=== PATIENT | male | born 1950 | race Caucasian/White ===

== ENCOUNTER 2023-06-12 11:15 | Outpatient (RCR) | payer MEDICARE, BC, SELFPAY ==
--- NOTE | 2023-03-14 15:58 | PT.OPEX ---
PT [place] Outpatient Eval INITIAL EVAL REQUIRES SIGNATURE PT [facility] Outpatient Eval Start: 03/14/23 07:44 Freq: Status: Active Protocol: Document 03/14/23 12:33 JUSTINO (Rec: 03/14/23 15:55 JUSTINO [id number]) E-signed By Favio Vidal DPT Physical Therapy Outpatient Evaluation Insurance Information Recert Due Date 06/07/23 Insurance Name Medicare B,Blue Cross/Blue Shield Medical Diagnosis R shoulder tendonitis Treating Diagnosis R shoulder pain muscle weakness Referring MD Abiel Mcclelland Subjective Subjective kristan comes into clinic dealing with R shoulder pain for the past 4-5 months now. Does think it has gotten better since seeing his primary. First noticed it when he was in [place] where he just noticed the pain one day. Does realize he has a hard time lifting the arm overhead, vertical chest press , or performing plank. HE is an avid gym goer so wants to get back to doing these things . Aside from the gym he notices reaching overhead or away from the body causes increased pain. Sleeping was an issue but has gotten alot better. Pain Comments 0-6 with planks or reaching over head Current Work Status Retired Objective Other/Pertinent Objective SHOULDER AROM WNL on L Flexion: R 125 before pain Abduction: R 130 before pain Internal Rotation: R T9 T4 L External Rotation: R 61 NECK/SHOULDER MMT: Shoulder shrug: R 5/5 L 5/5 Shoulder flexion: R 4/5 L 4/5 Shoulder abduction: R4 /5 L 4/ 5 Shoulder External Rotation: R5 /5 L5 /5 Shoulder Internal Rotation: R 5/5 L5 /5 Elbow flexion: R4 /5 L5 /5 Elbow extension R 5/5 L 5/5 SPECIAL TEST Shoulder impingement Anthony Test: - Neer Test: + R Elsi Test: - Horizontal Adduction Test:- Painful arc 60-120 scaption:+ R Rotator cuff tendonitis Speeds test(biceps): + B Yergasons test(biceps-arm at side elbow flexed): - Empty can(Supra): - Lift off test (subscap):- JOINT MOBILITY/PALPATION increased upper trap tightness long head biceps tenderness with palpation TX: education on HEP and gym routine-how to progress and manage bicep curl with extra focus on supination #8 x 15 banded scaption yellow tb x 12 jordan hrz abd 2x 15 Assessment Assessment/Impression .assess Pt is a 72 yr old male who presents with concerns of R shoulder pain. Patient also has notable objective findings including limited ROM, impaired shoulder stability, decreased strength also likely contributing to the problem. Patient is a good candidate for skilled therapy to target deficits described above. Skilled PT intervention is necessary for use of therapeutic exercise manual therapy, neuromuscular re- education, and therapeutic activity. Functional impairments include difficulty with: reaching lifting planks . See appropriate sections of PT eval for complete list of goals and POC. D/C plan and criteria is for pt to achieve the goals as listed below or until max rehab potential is met. Pt was agreeable with plan of care and goals established Plan of Care Rehabilitation Potential Good Physical Therapy Goals STG Patient will demonstrate/ report ability to reach to 130 -140 degrees shoulder flexion and abduction with pain level <1/10, to allow for puff ironer, hygiene, work within 4 weeks Pt will be able to demonstrate or report ability to perform 30 sec modified plank without pain within 4 weeks Pt will be able to demonstrate / report ability to lift #5-10 from counter height to overhead without pain within 4weeks, for household and work activity. LTG Patient will demonstrate/ report ability to reach to 150 degrees shoulder flexion and abduction with pain level <1/ 10, to allow for puff ironer, hygiene, work within 8 weeks Pt will be able to demonstrate or report ability to perform 30 sec plank without pain within 8 weeks Pt will be able to demonstrate / report ability to lift #15 from counter height to overhead without pain within 8weeks, for household and work activity. Coordination/Communication With Referral Source Treatment Plan/Direct Interventions Joint Mobilization,Manual Therapy,Neuromuscular Re-ed, Self-Care/Home Management, Therapeutic Activities, Therapeutic Exercises Frequency/Duration 1-2 visits a week for 6-12 weeks Patient Will Be Discharged From Therapy Completion of LTG(s), Independent w/HEP, Independently Progressing Evaluation Billing Untimed Code Treatment Minutes 27 Complexity Low Certification Information Initial Certification Date 03/14/23 Ending Certification Date 06/07/23 Physician Comment/Change : Physician NPI Number #
== END 2023-09-03 13:35 | disposition home or self-care (01) ==
PROVIDERS: PCP Family Medicine; Visit Provider Orthopaedic Surgery
DX: M25.511 Pain in right shoulder (principal); M75.81 Other shoulder lesions, right shoulder; Z51.89 Encounter for other specified aftercare
CPT/HCPCS: 97110; 97140; 97161; 97535

== ENCOUNTER 2024-02-13 08:24 | Outpatient (CLI) | payer MEDICARE, BC, SELFPAY ==
--- OUTSIDE RECORDS SUMMARY | 2024-02-16 07:51 | XMS_ITS | Clinical Summary ---
Author Name Unknown Organization [facility] Address [place], [place] [address] Care Team Providers Care Elevator Operator Freight Name Role Phone Nik Navarro MD Primary Care Provider [phone] Allergies No known active allergies Medications Medication Sig Dispensed Refills Start Date End Date Status losartan (COZAAR) 50 mg tablet Take 1 tablet by mouth once daily. 0 03/03/2015 Active triamterene-hydrochlor othiazide, 37.5-25 mg, (MAXZIDE-25) 37.5-25 mg tablet 01/05/2016 Active Active Problems Problem Noted Date Diagnosed Date HTN (hypertension) 01/31/2016 Social History Tobacco Use Types Packs/Day Years Used Date Smoking Tobacco: Former Cigarettes Q uit: 10/12/1985 Smokeless Tobacco: Never Alcohol Use Standard Drinks/Week Comments Not Currently 0 (1 standard drink = 0.6 oz pur e alcohol) Sex and Gender Information Value Date Recorded Sex Assigned at Not on file Gender Identity Not on file Sexual Orientation Not on file Obstetrics History Last Filed Vital Signs Vital Sign Reading Time Taken Comments Blood Pressure 127/80 06/13/2022 8:48 AM CDT Pulse 60 06/13/2022 8:48 AM CDT Temperature 36.6 ??C (97.8 ??F) 06/13/2022 8:48 AM CD T Respiratory Rate 20 06/13/2022 8:48 AM CDT Oxygen Saturation 94% 06/13/2022 8:48 AM CDT Inhaled Oxygen Concentration - - Weight 105.7 kg (233 lb) 01/17/2017 9:32 AM CDT Height 181.6 cm (5' 11.5) 01/17/2017 9:32 AM CD T Body Mass Index 32.04 01/17/2017 9:32 AM CDT Plan of Treatment Health Maintenance Due Date Last Done Comments Tdap 1963 Depression screening for age 12+ 1964 Hepatitis C screening for age 18-79 1970 Tetanus booster 1972 Colonoscopy through age 75 1997 Lipids for age 45-75 1997 Zoster (shingles) series for age 50+ (1 of 2) 2002 Pneumococcal series for age 65+ (1 of 1 - PCV) 2017 BMI (ht and wt on same day) for age 18+ 01/17/2018 0 01/17/2017, 01/31/2016 COVID-19 vaccine series (2022- season) 2023 Influenza for age 65+ 06/07/2024 Care Teams Elevator Operator Freight Relationship Specialty Start Date End Date Nik Navarro MD [address] [place] [phone] PCP - General Family Practice 06/13/22
--- OUTSIDE RECORDS SUMMARY | 2024-02-16 07:51 | XMS_ITS | Clinical Summary ---
Author Name Unknown Organization [facility] Address [address] [place] [address] Care Team Providers Care Automotive Technology Instructor Name Role Phone Unavailable Primary Care Provider Unavailabl e Source Comments You are receiving this document as you are listed as the primary care provider,follow-up provider, or the patient has been referred to you for consultation.This is in compliance with the Medicare andMedicaid EHR Incentive Program,which states Providers who transition their patient to another setting of careor provider of care or refers their patient to another provider of care shouldprovide summary care record for each transition of care or referral. [facility] [facility] Immunizations Name Administration Dates Next Due HepB Adult (Engerix-B, 20+ y rs, 3 dose series) 07/01/2018,03/25/2018,01/20/2018 Social History Tobacco Use Types Packs/Day Years Used Date Smoking Tobacco: Never Assessed Sex and Gender Information Value Date Recorded Sex Assigned at Not on file Gender Identity Not on file Sexual Orientation Not on file Plan of Treatment Health Maintenance Due Date Last Done Comments Colon Cancer Screening Plan Due 1950 Hep C Screening (Preventive Services) 1950 Adult Preventive Visit 1970 Cholesterol 1987 COVID-19 Vaccine ( season) 2023 Influenza (Season Ended) 2024 020, 08/01/2018, 07/20/2017, Additional history exists DTaP/Tdap/Td (3 - Tdap) 11/14/2027 11/14/2017, 12/09 HepB Completed 07/01/2018, 03/07, 01/20/2018 Pneumococcal 65+ Yrs Completed 01/16/2019, 11/14/19 18 Zoster/Shingles Completed 09/11/2019, 06/08, 12/17/2014 HepA Aged Out No longer eligi ble based on patient's age to complete this topic Hib Aged Out No longer eligi ble based on patient's age to complete this topic IPV (Polio) Aged Out No longer eligi ble based on patient's age to complete this topic MCV4 Aged Out No longer eligi ble based on patient's age to complete this topic
== END 2024-02-13 08:25 | disposition home or self-care (01) ==
LOC: NFLDREF 02-16 07:49
PROVIDERS: PCP Family Medicine; Referring Provider Family Medicine; Visit Provider Family Medicine
DX: Z00.00 Encounter for general adult medical examination without abnormal findings (principal); I10 Essential (primary) hypertension; E78.5 Hyperlipidemia, unspecified; Z12.5 Encounter for screening for malignant neoplasm of prostate
CPT/HCPCS: 80053; 80061; G0103

== ENCOUNTER 2024-06-24 13:27 | Outpatient (CLI) | payer MEDICARE, BC, SELFPAY ==
--- OUTSIDE RECORDS SUMMARY | 2024-06-24 13:30 | XMS_ITS | Clinical Summary ---
Author Organization [facility] Address [place], [place] [address] Care Team Providers Care Wood Boatbuilder Apprentice Name Role Phone Nik Navarro MD Primary Care Provider [phone] Allergies No known active allergies Medications Medication [...] 01/17/2018 0 01/17/2017, 01/31/2016 COVID-19 vaccine series ( season) 2024 Influenza for age 65+ 06/07/2024 Care Teams Wood Boatbuilder Apprentice Relationship Specialty Start Date End Date Nik Navarro MD [address] [place] [phone] PCP - General Family Practice 06/13/22
--- OUTSIDE RECORDS SUMMARY | 2024-06-24 13:30 | XMS_ITS | Clinical Summary ---
[facility] Address [address] [place] [address] Care Team Providers Care Commercial Driver Name Role Phone Unavailable Primary Care Provider [...] for each transition of care or referral. [facility] Immunizations Name Administration Dates Next Due HepB [...] 1970 Cholesterol 1987 COVID-19 Vaccine ( season) 2024 Influenza (#1) 2024 07/18/2020, 07/08, 07/20/2017, Additional history exists RSV (1 - 1-dose 75+ series) 2027 DTaP/Tdap/Td (3 - Tdap) 11/14/2027 11/14/2017, 12/09 [...]
--- NOTE | 2024-06-24 13:45 | MR_ITS ---
[facility] [address] [facility] [address] Phone:?[phone] Fax:?[phone] Referring Physician Information: Abiel Mcclelland M.D. [address] [facility] [address] Phone:?[phone] Fax:?[phone] Patient:Jeffery Chadwick D.O.B:?1950 Sex:?Male Phone:?[phone] [facility] MRN:?[id number] Exam Date:?06/24/2024 EXAM: MRI of the RIGHT KNEE, without contrast CLINICAL HISTORY: Ongoing right knee pain. Evaluate for meniscal tear. COMPARISONS: None available. TECHNICAL: MR sequences of the right knee: sagittals: PD, PDFS coronals: PD, STIR axials: PD, T2 FS CONTRAST: None SEDATION: None FINDINGS: Bones: No fracture or destructive osseous lesion. Patellofemoral joint: Cartilage: 1.0 x 1.0 cm area of grade IV chondromalacia over the lateral patellar facet with associated subchondral cystic changes. Retinacula: The medial and lateral retinacula are intact. Fat pads: The infrapatellar, quadriceps, and prefemoral fat pads are unremarkable. Knee joint: Effusion: Physiologic amount of joint fluid. Popliteal cyst: None. Intra-articular bodies: None. Posteromedial corner: There is mild semimembranosus insertional tendinopathy. Medial compartment: Medial meniscus: There is a 4.0 cm in length complex tear from the body through posterior horn/posterior root junction of the medial meniscus with torn meniscal tissue from the body extruded into the medial gutter. There is associated reactive bone marrow edema within the posterior and peripheral portion of the medial tibial plateau. Cartilage: Grade II chondral thinning over the weight-bearing portion of the medial femoral condyle. Lateral compartment: Lateral meniscus: 1.0 cm in length ill-defined free edge surfacing tear of the body of the lateral meniscus. Cartilage: 2 x 2 mm near full-thickness chondral defect over the central portion of the lateral tibial plateau. Ligaments: Anterior cruciate ligament: Intact. Posterior cruciate ligament: Intact. Medial collateral ligament: Intact. Posterior oblique ligament: Intact. Fibular collateral ligament: Intact. Posterolateral corner: The distal biceps femoris tendon, iliotibial band, popliteus tendon, popliteus muscle, popliteofibular ligament, and arcuate ligament are intact. Extensor mechanism: Patellar tendon: Intact. Quadriceps tendon: Intact. There is nonspecific soft tissue swelling anterior to the patella and patellar tendon. IMPRESSION: 1. 4.0 cm in length complex tear from the body through posterior horn/posterior root junction of the medial meniscus with torn meniscal tissue from the body extruded into the medial gutter. Associated reactive bone marrow edema within the posterior and peripheral portion of the medial tibial plateau. 2. 1.0 x 1.0 cm area of grade IV chondromalacia over the lateral patellar facet with associated subchondral cystic changes. 3. Grade II chondral thinning over the weight-bearing portion of the medial femoral condyle. 4. 2 x 2 mm near full-thickness chondral defect over the central portion of the lateral tibial plateau. 5. Mild semimembranosus insertional tendinopathy. 6. No ligamentous injury of the right knee. RCB Electronically signed on 06/24/2024 3:35:00 PM by Sonu Joe M.D.
== END 2024-06-24 13:28 | disposition home or self-care (01) ==
PROVIDERS: PCP Family Medicine; Visit Provider Orthopaedic Surgery
DX: M25.561 Pain in right knee (principal); S83.231A Complex tear of medial meniscus, current injury, right knee, initial encounter; M22.41 Chondromalacia patellae, right knee; S83.289A Other tear of lateral meniscus, current injury, unspecified knee, initial encounter
CPT/HCPCS: 73721

== ENCOUNTER 2024-07-06 13:30 | Outpatient (CLI) | payer MEDICARE, BC, SELFPAY ==
--- OUTSIDE RECORDS SUMMARY | 2024-07-06 13:33 | XMS_ITS | Clinical Summary ---
[facility] Organization [facility] Address [address] [place] [address] Care Team Providers Care Animated Cartoons Painter Name Role Phone Unavailable Primary Care Provider [...] for each transition of care or referral. [employer] Immunizations Name Administration Dates Next Due HepB [...]
--- OUTSIDE RECORDS SUMMARY | 2024-07-06 13:33 | XMS_ITS | Clinical Summary ---
Author Organization [facility] Address [place], [place] [address] Care Team Providers Care Library Associate Name Role Phone Nik Navarro MD Primary Care Provider [phone] Allergies No known active allergies Medications Medication [...] 01/17/2018 0 01/17/2017, 01/31/2016 COVID-19 vaccine series (2023- season) 2024 Influenza for age 65+ 06/07/2024 Care Teams Library Associate Relationship Specialty Start Date End Date Nik Navarro MD [address] [place] [phone] PCP - General Family Practice 06/13/22
[2024-07-06 15:17] LABS: Chloride* 102 mmol/L (96-114); Potassium* 4.1 mmol/L (3.6-5.1); Sodium* 140 mmol/L (135-149)
[2024-07-06 15:20] LABS: Anion Gap 8 mEq/L (7-15); Blood Urea Nitrogen* 18 mg/dL (7-30); Carbon Dioxide* 30 mmol/L (20-32); Creatinine* 0.9 mg/dL (0.5-1.5); Estimated Glomerular Filt Rate 91 ml/min
[2024-07-06 15:21] LABS: Calcium* 9.6 mg/dL (8.4-10.6); Glucose* 105 mg/dL (60-115)
== END 2024-07-06 13:31 | disposition home or self-care (01) ==
PROVIDERS: PCP Family Medicine; Visit Provider Family Medicine
DX: Z13.228 Encounter for screening for other metabolic disorders (principal)
CPT/HCPCS: 80048

== ENCOUNTER 2024-07-31 07:51 | Day surgery (SDC) | payer MEDICARE, BC, SELFPAY ==
[2024-07-31] VITALS (13 sets, daily range): BP systolic 86–130; BP diastolic 57–92; PULSE 56–76; RESP 14–16; TEMP 36.2–36.7; O2SAT 94–97; BMI 33.8
--- OUTSIDE RECORDS SUMMARY | 2024-07-31 07:54 | XMS_ITS | Clinical Summary ---
Author Organization [facility] Address [place], [place] [address] Care Team Providers Care Logistics Program Manager Name Role Phone Nik Navarro MD Primary Care Provider [phone] Allergies No known active allergies Medications Medication [...] Influenza for age 65+ 06/07/2024 Care Teams Logistics Program Manager Relationship Specialty Start Date End Date Nik Navarro MD [address] [place] [phone] PCP - General Family Practice 06/13/22
--- OUTSIDE RECORDS SUMMARY | 2024-07-31 07:54 | XMS_ITS | Clinical Summary ---
Author Organization [facility] Address [address] [place] [address] Care Team Providers Care Credit And Collection Manager Name Role Phone Unavailable Primary Care Provider [...] for each transition of care or referral. [employer] Immunizations Name Administration Dates Next Due HepB [...] on patient's age to complete this topic RSV Aged Out No longer eligi ble based on patient's age to complete this topic MCV4 Aged Out No longer eligi ble based on patient's age to complete this topic
--- NOTE | 2024-07-31 08:33 | W.PM.H&PU ---
History & Physical Update History & Physical Update H&P Reviewed and patient assessed: No changes noted
--- NOTE | 2024-07-31 08:33 | PM.ORPRC ---
Procedure Note Date of procedure: 07/31/24 Procedure: PREOPERATIVE DIAGNOSIS: 1. Right knee medial and lateral meniscus tears 2. Right knee chondromalacia POSTOPERATIVE DIAGNOSIS: 1. Right knee medial and lateral meniscus tears 2. Right knee chondromalacia PROCEDURE: 1. Right knee arthroscopic partial medial and lateral meniscectomies 2. Right knee arthroscopic medial femoral condyle chondroplasty SURGEON: Leo Mcclelland M.D. EXECUTIVE STAFF ASSISTANT: Alanna Silva P.A.-C. An clerical administrative assistant was critical for this case to aid in patient positioning, knee manipulation, instrument exchange, and closure. ANESTHESIA: Spinal EBL: 1 mL TOURNIQUET: 29 minutes at 300 mmHg COMPLICATIONS: None INDICATIONS: Tomas is a 74-year-old male who developed knee pain after after an injury he sustained a few months ago. Symptoms do not improve with conservative management. MRI was subsequent 18 which revealed tears of the medial and lateral menisci with mild chondromalacia. Emanation subsequent made for surgical intervention consisting of right knee arthroscopic partial meniscectomies and chondroplasty. Prior to surgery risks benefits of procedure were discussed with patient all questions were answered informed consent was obtained. FINDINGS: Examination under anesthesia revealed negative Ahmet's and posterior drawer. Knee was stable to varus and valgus stress. Arthroscopic examination revealed degenerative horizontal cleavage tear of the posterior horn of the medial meniscus and mild degenerative tearing of the lateral meniscus body. Meniscal roots were intact. There for areas of grade 3 chondromalacia involving the medial femoral condyle, lateral tibial plateau, and patella. Medial femoral condyle had unstable cartilage which was debrided. ACL PCL were intact. No intra-articular loose bodies. DESCRIPTION OF PROCEDURE: Patient was seen preoperatively and operative site was marked. He was then brought to the operating room where spinal anesthesia was administered by anesthesia staff. He was then rotated into the supine position on the OR table. He is given IV Ancef preoperatively for prophylaxis. A tourniquet placed on patient's right thigh, and the right lower extremity was prepped and draped in the appropriate sterile fashion. A surgical time-out was performed confirming patient identity, surgical site, and procedure. The right lower extremity was exsanguinated and tourniquet inflated and tourniquet inflated to 300 mmHg. Anterolateral and anteromedial portals were injected with 0.25% bupivacaine with epinephrine. Anterolateral portal was established with an 11 blade. Anterior medial portal site established after localization with spinal needle. Diagnostic arthroscopy was performed. This identified the findings as noted above. Following the diagnostic arthroscopy, partial lateral meniscectomy was performed using arthroscopic biter and motorized shaver. Approximately 10% of the lateral meniscus body and less than 5% of the lateral meniscus was resected. After partial meniscectomy, meniscus was probed and confirmed to be stable. Attention was then directed to the medial compartment. Partial medial meniscectomy was performed using arthroscopic biter and motorized shaver. Approximately 50% of the medial meniscus posterior horn and 25% of the overall meniscus was resected. After partial meniscectomy remnant meniscus was probed and confirmed to be stable. Attention is then directed to the medial femoral condyle where there was area of grade 3 chondromalacia involving the weight-bearing surface. Portion of this cartilage was unstable and was debrided with motorized shaver. After chondroplasty, remnant cartilage was probed and confirmed to be stable. At this stage, the shaver was reinserted into the suprapatellar pouch and all remaining meniscal debris was evacuated. Instruments were removed, excess fluid was drained, and closure performed with 4-0 Monocryl with Steri-Strips. Dressings were applied, the tourniquet deflated, and the patient was awoken from anesthesia and transferred to the PACU in stable condition. PLAN: 1. Weightbear as tolerated right lower extremity. Crutch / walker ambulation assistance PRN. 2. Ice, elevation, acetominophen and/or ibuprofen, and Baskin for pain as needed. 3. Knee range of motion and quad sets/straight leg raise regularly 4. Follow up in orthopedic clinic in 1-2 weeks for a wound check.
[2024-07-31] MEDS: SODIUM CHLORIDE 0.9 % (FLUSH) 10 ML SYRINGE IVF (09:00)
--- NOTE | 2024-07-31 10:00 | W.ANESCHARGE ---
Anesthesia Charges Start Date/Time Anesthesia Start Date: 07/31/24 Anesthesia Start Time: 09:40 Stop Date/Time Anesthesia Stop Date: 07/31/24 Anesthesia Stop Time: 10:46 Summary Extremes of Age - Over 70 or under 1: MDA
[2024-07-31] MEDS: BUPIVACAINE 0.25 %/EPI 1:200K 30 ml 10 ML INJECTION (10:02)
--- NOTE | 2024-07-31 10:07 | SUR.OPER ---
PATIENT QUESTIONS ANSWERED SATISFACTORILY PREOPERATIVELY.? PATIENT BROUGHT TO OR #3 PER CART.? Patient positioned supine on OR #3 bed.? The perioperative?team supported arms bilaterally on arm boards.? Final approval of positioning by surgeon.?CONTINUOUS IRRIGATION OF THE RIGHT KNEE DURING THE PROCEDURE WITH NACL.
--- NOTE | 2024-07-31 10:47 | W.ANESCHARGE ---
Anesthesia Charges Start Date/Time Anesthesia Start Date: 07/31/24 Anesthesia Start Time: 09:40 Stop Date/Time Anesthesia Stop Date: 07/31/24 Anesthesia Stop Time: 10:46
== END 2024-07-31 12:50 | disposition home or self-care (01) ==
LOC: OR 07:52
PROVIDERS: PCP Family Medicine; Visit Provider Orthopaedic Surgery
PROC: (CPT 29870; principal; 2024-07-31 09:15)
DX: M23.221 Derangement of posterior horn of medial meniscus due to old tear or injury, right knee (principal); M23.261 Derangement of other lateral meniscus due to old tear or injury, right knee; M94.261 Chondromalacia, right knee
CPT/HCPCS: 29880; 29879; 01400; 99100; J1885; J2250; J2405; J2704; J3010

== ENCOUNTER 2024-09-01 11:30 | Outpatient (RCR) | payer MEDICARE, BC, SELFPAY ==
--- NOTE | 2024-08-11 15:19 | PT.OPEX ---
[facility] Eval PT [facility] Outpatient Eval Start: 08/11/24 11:55 Freq: Status: Active Protocol: Document 08/11/24 11:55 MLS (Rec: 08/11/24 15:18 MLS [id number]) E-signed By Jeanette Butler DPT Physical Therapy Outpatient Evaluation Insurance Information Recert Due Date 11/08/24 Insurance Name Medicare B Medical Diagnosis [id number] other specific post procedural states s/p right knee arthroplasty R knee arthroplastic partial medial and lateral meniscectomies medial femoral condyle chondroplasty Treating Diagnosis Quad Strengthening and ROM Referring MD Alanna Silva, PAVerna Subjective Subjective Patient is a 74 year old male who presents to physical therapy s/p right knee partial medial and lateral meniscectomies and medial femoral condyle chondroplasty. His surgery was on 07/31/24. He states that that he has some medial knee pain and some posterior knee pain. He states that he works out at [employer] in [place] four times per week. He is on restrictions for no leg exercises, no free weights, no kneeling but is able to use the upper body machines. He reports that he tried the stationary bike and he was unable to get around at first. He tried the recumbent bike the day after and that went well. He tried the stationary bike again and was able to do 20 minutes and 2 miles at level 8. He reports that he is able to go up and down the stairs reciprocal with minimal pain. He states that going down stairs is worse than going up stairs. He states that his bedrooms are upstairs and has just started sleeping upstairs. He reports that up until today his knee has felt better every morning. He states that today he noticed that it did not feel any better. He does have some pain when he rolls side to side in bed. He does wake secondary to knee jang. He does winter in [place] and leaves the Saturday after . He does a lot of walking and hiking in [place]. Aggravating factors include: stairs, walking, driving, sleeping, exercising and ADLs. Alleviating factors include: nothing. No significant past medical history. Patient would like to be able to walk and hike when he goes to [place] through attending his physical therapy sessions. Pain Comments Today: 3/10 on a 0-10 pain scale with 10 = extreme pain At its worst: 8/10 At its best: 3/10 Current Work Status Retired Precautions Weight Bearing Status Full Weight Bearing Therapy Limitations/Systems Review Not Limited Objective Other/Pertinent Objective GAIT/FUNCTIONAL MOBILITY Ambulates without an assistive device and with a heel toe gait pattern KNEE ROM Extension/Flexion: 0-90 LLE MMT: Hip flexion: R 4+/5 L 4+/5 Hip abduction: R 4/5 L 4/5 Hip extension: R 4/5 L 4/5 Knee flexion: R 4/5 L 5/5 Knee extension: R 4/5 L 5/5 JOINT MOBILITY/PALPATION Tenderness with palpation of medial joint line and posterior aspect of his knee TX: Access Code: [email or web address] URL: [email or web address] Date: 08/11/2024 Prepared by: Jeanetet Butler Exercises - Seated Hamstring Stretch - 1 x daily - 7 x weekly - 3 sets - 10 reps - Supine Quadricep Sets - 1 x daily - 7 x weekly - 3 sets - 10 reps - Supine Heel Slide - 1 x daily - 7 x weekly - 3 sets - 10 reps - Supine Active Ankle Pumps - 1 x daily - 7 x weekly - 3 sets - 10 reps - Supine Isometric Hamstring Set - 1 x daily - 7 x weekly - 3 sets - 10 reps - Gluteal Sets - 1 x daily - 7 x weekly - 3 sets - 10 reps - Supine Active Straight Leg Raise - 1 x daily - 7 x weekly - 3 sets - 10 reps Functional Test Performed & Score 32/80 A score increase of 6 points shows a significant improvement in lower extremity function. Assessment Assessment/Impression Pt is a 74 year old male who presents s/p right knee partial medial and lateral meniscectomies and medial femoral condyle chondroplasty. . Patient also has notable objective findings including limited ROM, tenderness to palpation, and decreased strength which are also likely contributing to the problem. Patient is a good candidate for skilled therapy to target deficits described above. Skilled PT intervention is necessary for use of therapeutic exercise manual therapy, neuromuscular re- education, gait training, and therapeutic activity. Functional impairments include difficulty with: walking, standing, driving, exercising, and ADLs. See appropriate sections of PT eval for complete list of goals and POC . D/C plan and criteria is for pt to achieve the goals as listed below or until max rehab potential is met. Pt was agreeable with plan of care and goals established. Primary Functional Limitations standing walking driving exercising ADLs Plan of Care Rehabilitation Potential Good Physical Therapy Goals Within 10-12 weeks: 1.Pt will demonstrate independence in performance of home exercise program with the use of video and/or handouts in order to optimize functional mobility and reduce risk for re-injury. 2.Pt will demonstrate consistent HEP compliance to ensure progress in reaching established goals during course of care. 3.Patient will be able to sit and drive for up to one hour without pain. 4.Patient will report pain levels <2/10 with all activities in order to improve functional mobility at home, work and during functional leisure activities. 5.Patient is able to sleep without waking more than one time due to pain in a 6-8 hour time frame. 6.Patient will be able to walk up to one mile without pain. 7.Pt will be able to ascend/ descend 1 flight of stairs in order to perform ADLs pain free. 8.Pt will exhibit 5 pt improvement in LEFS measure to demonstrate functional improvement and progress towards goals Coordination/Communication With Referral Source Treatment Plan/Direct Interventions Gait Training,Joint Mobilization,Manual Therapy, Neuromuscular Re-ed, Therapeutic Activities, Therapeutic Exercises Patient Will Be Discharged From Therapy Independently Progressing Evaluation Billing Untimed Code Treatment Minutes 30 Complexity Low Certification Information Provider Signature Required Yes Provider Signature Shows Agreement With POC & Medical Necessity Physician NPI Number Write NPI# Here Physician Comment/Change : Physician Signature & Date Requested Please Sign/Date Here
== END 2024-11-23 08:38 | disposition home or self-care (01) ==
PROVIDERS: PCP Family Medicine; Visit Provider Physician Assistant Surgical
DX: Z98.890 Other specified postprocedural states (principal); Z51.89 Encounter for other specified aftercare
CPT/HCPCS: 97110; 97161